=== PATIENT | female | born 1985 | race Caucasian/White ===

== ENCOUNTER → 2018-04-19 | Outpatient (REF) | payer OTHER ==
[2018-04-19 21:25] LABS: APPEARANCE, URINE MANUAL CLOUDY (CLEAR); COLOR, URINE MANUAL BROWN (YELLOW)
[2018-04-19 21:26] LABS: BILIRUBIN, URINE MANUAL NEGATIVE (NEGATIVE); BLOOD URINE MANUAL POSITIVE (NEGATIVE); GLUCOSE, URINE (UA) MANUAL NEGATIVE (NEGATIVE); KETONE, URINE MANUAL NEGATIVE (NEGATIVE); LEUKOCYTE ESTERASE, URINE MAN POSITIVE (NEGATIVE); MICROSCOPIC INDICATED? MAN YES (NO); NITRITE, URINE MANUAL TRACE (NEGATIVE); PROTEIN, URINE MANUAL 3+ mg/dL (NEGATIVE); UROBILINOGEN, URINE MANUAL NORMAL (NORMAL)
[2018-04-19 21:35] LABS: BACTERIA, URINE LARGE AMOUNT; HYALINE CAST, URINE NONE SEEN /lpf (0-1); MICROSCOPIC EXAM PERFORMED; MUCUS, URINE SMALL AMOUNT (NEGATIVE); RBC, URINE TNTC /hpf (0-3); SQUAMOUS EPITHELIAL CELL URINE NONE SEEN /hpf (SMALL AMT); TRANSITIONAL EPI CELLS, URINE SMALL AMOUNT /hpf; WBC, URINE TNTC /hpf (0-3)
== END ==
LOC: M LAB REF 21:11
DX: N39.0 Urinary tract infection, site not specified (principal)
CPT/HCPCS: 81015

== ENCOUNTER → 2019-04-24 | Outpatient (CLI) | payer MEDICAID ==
[~2019-04-24] MED LIST: ADDE25CA PO; AMLO5TAB6 PO; BUPR300T92 PO; QUET1TAB8 PO; SUBO8MIS SL; VIST50CA PO
== END ==
LOC: M OUTALCOH 07:46
PROVIDERS: ATTEND Psychiatry & Neurology Psychiatry
DX: F11.20 Opioid dependence, uncomplicated (principal)

== ENCOUNTER → 2019-05-14 | Outpatient (REF) | payer OTHER ==
[2019-05-14 13:35] LABS: HCG, SERUM QUALITATIVE NEGATIVE (NEGATIVE)
[2019-05-14 13:41] LABS: FREE THYROXINE INDEX 4.2 % (1.3-4.8); T UPTAKE 38 % (30-39); THYROXINE (T4) 11.1 UG/DL (4.5-12.0)
[2019-05-14 13:52] LABS: ESTRADIOL 24.1 PG/ML; FOLLICLE STIMULATING HORMONE 5.3 mIU/mL; PROLACTIN 6.2 NG/ML
[2019-05-16 00:07] LABS: DEHYDROEPIANDROSTERONE SULFATE 154.9 ug/dL (84.8-378.0)
== END ==
LOC: M SFHCWAGY 10:54
PROVIDERS: ATTEND Nurse Practitioner Women's Health
DX: N91.4 Secondary oligomenorrhea (principal)

== ENCOUNTER → 2019-05-20 | Outpatient (RCR) | payer MEDICAID | LOC: M OUTALCOH 05-06 14:48 | PROVIDERS: ATTEND Psychiatry & Neurology Psychiatry | DX: F11.20 Opioid dependence, uncomplicated (principal); Z72.0 Tobacco use ==

== ENCOUNTER 2019-06-18 10:00 | Outpatient (RCR) | payer MEDICAID | END 2019-06-20 | LOC: M OUTALCOH 10:00 | PROVIDERS: ATTEND Psychiatry & Neurology Psychiatry | DX: F11.20 Opioid dependence, uncomplicated (principal); Z72.0 Tobacco use ==

== ENCOUNTER 2019-06-28 13:00 | Outpatient (RCR) | payer MEDICAID | END 2019-07-20 | LOC: M OUTALCOH 13:00 | PROVIDERS: ATTEND Psychiatry & Neurology Psychiatry | DX: F11.20 Opioid dependence, uncomplicated (principal); Z72.0 Tobacco use ==

== ENCOUNTER 2019-09-06 03:04 | Emergency (ER) | payer MEDICAID, OTHER ==
[~2019-09-06] VITALS: Ht 157.5 cm; Wt 52.3 kg
[2019-09-06] MEDS ORDERED: AMLO5TAB6 PO (03:11)
[2019-09-06] MEDS ORDERED: ADDE25CA PO (03:11)
[2019-09-06] MEDS ORDERED: BUPR300T92 PO (03:11)
[2019-09-06] MEDS ORDERED: QUET1TAB8 PO (03:11)
[2019-09-06] MEDS ORDERED: SUBO8MIS SL (03:11)
[2019-09-06] MEDS ORDERED: hydrOXYzine 50 MG TAB PO ONE (04:45)
[2019-09-06 04:52] LABS: HEMATOCRIT 38.8 % (36.0-47.0); MEAN CORPUSCULAR HEMOGLOBIN 28.5 pg (27.0-33.0); MEAN CORPUSCULAR HGB CONC 33.5 g/dl (32.0-36.5); MEAN CORPUSCULAR VOLUME 85.1 fl (80.0-96.0); PLATELET COUNT, AUTOMATED 592 10^3/uL (150-450); RED BLOOD COUNT 4.56 10^6/uL (4.00-5.40); WHITE BLOOD COUNT 11.4 10^3/uL (4.0-10.0)
[2019-09-06 05:02] LABS: INR 1.08; PROTHROMBIN TIME 13.7 SECONDS (11.8-14.0)
[2019-09-06 05:03] LABS: PARTIAL THROMBOPLASTIN TIME 33.2 SECONDS (25.0-38.4)
[2019-09-06 05:08] LABS: EOSINOPHILS 2 % (0-3); LYMPHOCYTES 38 % (16-44); MONOCYTES 8 % (0-5); NEUTROPHILS 52 % (28-66); PLATELET ESTIMATE INCREASED (NORMAL)
--- NOTE | 2019-09-06 05:39 | REPVR ---
PROCEDURE INFORMATION: Exam: US Abdomen Limited, Right Upper Quadrant Exam date and time: 09/06/19 (4:57am) Age: 34 years old Clinical indication: New onset jaundice TECHNIQUE: Imaging protocol: Real-time ultrasound of the abdomen with image documentation. Examination was focused on the right upper quadrant. COMPARISON: No relevant prior studies available FINDINGS: The liver is visually normal in size and texture. The gallbladder wall is top normal in thickness (2.9 mm), with no stones nor sludge seen. No pericholecystic fluid is appreciated. The sonographic Salomon's sign is reported to be (-). The CBD is not dilated (3.3 mm diameter). The pancreas appears grossly unremarkable (limited views). The right kidney measures 11.5 cm in length, with no hydronephrosis appreciated. No ascites is seen. IMPRESSION: No acute pathology. No gallstones nor sludge. No biliary obstruction. Electronically signed by: Karen Orozco On 09/06/2019 05:38:50 AM
[2019-09-06 06:00] VITALS: BP 148/88
[2019-09-06 06:32] LABS: BLOOD UREA NITROGEN 7 MG/DL (7-18); CALCIUM LEVEL 8.7 MG/DL (8.5-10.1); CARBON DIOXIDE LEVEL 25 MEQ/L (21-32); CHLORIDE LEVEL 102 MEQ/L (98-107); CREATININE FOR GFR 0.69 MG/DL (0.55-1.30); GLOMERULAR FILTRATION RATE > 60.0 (>60); GLUCOSE, FASTING 104 MG/DL (70-100); POTASSIUM SERUM 4.2 MEQ/L (3.5-5.1); SODIUM LEVEL 135 MEQ/L (136-145)
[2019-09-06 06:33] LABS: ALBUMIN 3.2 GM/DL (3.2-5.2); ALT/SGPT 501 U/L (12-78); AMYLASE 48 U/L (25-115); BILIRUBIN,DIRECT 10.6 MG/DL (0.0-0.2); BILIRUBIN,TOTAL 12.3 MG/DL (0.2-1.0); ETHYL ALCOHOL (ETHANOL) < 0.003 % (0.000-0.010); LIPASE 195 U/L (73-393); TOTAL PROTEIN 7.9 GM/DL (6.4-8.2)
[2019-09-06] MEDS ORDERED: VIST50CA PO (06:49)
[2019-09-06 10:17] LABS: HEPATITIS B SURFACE ANTIGEN NEGATIVE (NEGATIVE)
[2019-09-06 10:45] LABS: HEPATITIS C VIRUS ABY INDEX < 0.0 INDEX (<0.8)
[2019-09-06 10:46] LABS: HEPATITIS B CORE ANTIBODY IGM NEGATIVE (NEGATIVE)
[2019-09-06 12:05] LABS: HEPATITIS A ANTIBODY IGM POSITIVE (NEGATIVE)
== END 2019-09-06 06:59 | disposition home or self-care (01) ==
LOC: M ED 03:04
DX: K75.9 Inflammatory liver disease, unspecified (principal); F11.21 Opioid dependence, in remission; Z79.899 Other long term (current) drug therapy; Z88.0 Allergy status to penicillin; F17.210 Nicotine dependence, cigarettes, uncomplicated
CPT/HCPCS: 36415; 76705; 80048; 80076; 81001; 82150; 83690; 84702; 85025; 85610; 85730; 86705; 86709; 86803; 87340; 93041; 99284; G0480

== ENCOUNTER → 2020-06-26 | Outpatient (CLI) | payer MEDICAID ==
[~2020-06-26] MED LIST changes: +AMLO1TAB24 PO; -AMLO5TAB6 PO; +QUET100T2 PO; -QUET1TAB8 PO
== END ==
LOC: M OUTALCOH 08:22
PROVIDERS: ATTEND Psychiatry & Neurology Addiction Medicine
DX: F11.20 Opioid dependence, uncomplicated (principal)

== ENCOUNTER → 2020-08-07 | Outpatient (REF) | payer MEDICAID ==
[2020-08-10 15:14] LABS: HEPATITIS A ANTIBODY IGM EQUIVOCAL (NEGATIVE); HEPATITIS B CORE ANTIBODY IGM NEGATIVE (NEGATIVE); HEPATITIS B SURFACE ANTIGEN NEGATIVE (NEGATIVE); HEPATITIS C VIRUS ABY INDEX 0.1 INDEX (<0.8); HIV 1&2 SCREEN CENTAUR NEGATIVE (NEGATIVE)
== END ==
LOC: M LAB REF 21:46
PROVIDERS: ATTEND Physician Assistant Medical
DX: A64 Unspecified sexually transmitted disease (principal)

== ENCOUNTER → 2021-03-26 | Outpatient (CLI) | payer MEDICAID | LOC: M OUTALCOH 07:39 | PROVIDERS: ATTEND Psychiatry & Neurology Psychiatry | DX: Z13.9 Encounter for screening, unspecified (principal) ==

== ENCOUNTER 2021-04-15 10:15 | Outpatient (RCR) | payer MEDICAID | END 2021-04-20 | LOC: M OUTALCOH 10:15 | PROVIDERS: ATTEND Psychiatry & Neurology Psychiatry | DX: F11.20 Opioid dependence, uncomplicated (principal); F15.20 Other stimulant dependence, uncomplicated; F17.200 Nicotine dependence, unspecified, uncomplicated ==

== ENCOUNTER 2021-05-13 09:00 | Outpatient (RCR) | payer MEDICAID | END 2021-05-20 | LOC: M OUTALCOH 09:00 | PROVIDERS: ATTEND Psychiatry & Neurology Psychiatry | DX: F11.20 Opioid dependence, uncomplicated (principal); F15.20 Other stimulant dependence, uncomplicated; F17.200 Nicotine dependence, unspecified, uncomplicated ==

== ENCOUNTER 2021-06-17 08:00 | Outpatient (RCR) | payer MEDICAID | END 2021-06-20 | LOC: M OUTALCOH 08:00 | PROVIDERS: ATTEND Psychiatry & Neurology Psychiatry | DX: F11.20 Opioid dependence, uncomplicated (principal); F15.20 Other stimulant dependence, uncomplicated; F17.200 Nicotine dependence, unspecified, uncomplicated ==

== ENCOUNTER 2021-07-08 08:00 | Outpatient (RCR) | payer MEDICAID | END 2021-07-20 | LOC: M OUTALCOH 08:00 | PROVIDERS: ATTEND Psychiatry & Neurology Psychiatry | DX: F11.20 Opioid dependence, uncomplicated (principal); F15.20 Other stimulant dependence, uncomplicated; F17.200 Nicotine dependence, unspecified, uncomplicated ==

== ENCOUNTER → 2021-09-27 | Outpatient (REF) | payer OTHER ==
[2021-09-28 00:15] LABS: GC DNA AMPLIFICATION NEGATIVE (NEGATIVE)
== END ==
LOC: M LAB REF 20:51
PROVIDERS: ATTEND Physician Assistant Medical
DX: Z20.2 Contact with and (suspected) exposure to infections with a predominantly sexual mode of transmission (principal)

== ENCOUNTER 2021-10-04 10:13 | Emergency (ER) | payer OTHER ==
[~2021-10-04] VITALS: Ht 157.5 cm; Wt 52.3 kg
[2021-10-04] MEDS ORDERED: METR-265 (10:40)
[2021-10-04 12:03] LABS: BASO # 0.1 10^3/uL (0.0-0.2); BASO % 0.3 % (0.0-1.0); HEMATOCRIT 37.6 % (36.0-47.0); HEMOGLOBIN 12.7 g/dl (12.0-15.5); LYMPH # 1.7 10^3/uL (1.5-5.0); LYMPH % 9.4 % (24.0-44.0); MEAN CORPUSCULAR HEMOGLOBIN 28.5 pg (27.0-33.0); MEAN CORPUSCULAR HGB CONC 33.8 g/dl (32.0-36.5); MEAN CORPUSCULAR VOLUME 84.5 fl (80.0-96.0); MONO % 9.4 % (2.0-8.0); NEUTROPHILS # 14.8 10^3/uL (1.5-8.5); NEUTROPHILS % 80.3 % (36.0-66.0); PLATELET COUNT, AUTOMATED 271 10^3/uL (150-450); RED BLOOD COUNT 4.45 10^6/uL (4.00-5.40); WHITE BLOOD COUNT 18.5 10^3/uL (4.0-10.0)
[2021-10-04 12:27] LABS: ERYTHROCYTE SEDIMENTATION RATE 69 mm/hr (0-20)
[2021-10-04 12:30] LABS: MONO # 1.7 10^3/uL (0.0-0.8)
[2021-10-04] MEDS ORDERED: NS 1,000 ML IV ONE (13:00)
[2021-10-04] MEDS ORDERED: VANCOMYCIN HCL 1,000 MG in IV FLUID PLACE HOLDER 1 EA IV ONE (13:35)
[2021-10-04] MEDS ORDERED: VANCOMYCIN HCL 1,000 MG, VIAL MATE ADAPTER 1 EACH in NS 250 ML IV ONE (13:40)
[2021-10-04 15:18] LABS: ALBUMIN 2.5 GM/DL (3.2-5.2); ALT/SGPT 21 U/L (12-78); BILIRUBIN,DIRECT 0.1 MG/DL (0.0-0.2); BILIRUBIN,TOTAL 0.4 MG/DL (0.2-1.0); BLOOD UREA NITROGEN 8 MG/DL (7-18); CALCIUM LEVEL 8.2 MG/DL (8.5-10.1); CARBON DIOXIDE LEVEL 23 MEQ/L (21-32); CHLORIDE LEVEL 100 MEQ/L (98-107); CREATININE FOR GFR 0.55 MG/DL (0.55-1.30); GLOMERULAR FILTRATION RATE > 60.0 (>60); GLUCOSE, FASTING 96 MG/DL (70-100); POTASSIUM SERUM 3.5 MEQ/L (3.5-5.1); SODIUM LEVEL 133 MEQ/L (136-145)
[2021-10-04] MEDS ORDERED: DOXY-443 PO (15:29)
[2021-10-04 15:43] VITALS: BP 121/71
== END 2021-10-04 16:03 | disposition home or self-care (01) ==
LOC: M ED 10:13
DX: L03.114 Cellulitis of left upper limb (principal); I10 Essential (primary) hypertension; F33.9 Major depressive disorder, recurrent, unspecified; Z88.0 Allergy status to penicillin; Z79.899 Other long term (current) drug therapy; Z79.891 Long term (current) use of opiate analgesic
CPT/HCPCS: 36415; 80047; 80048; 80076; 83605; 84702; 85025; 85652; 86140; 87040; 87077; 87186; 96361; 96365; 99283; J3370

== ENCOUNTER → 2022-01-28 | Outpatient (REF) | payer OTHER, SELFPAY ==
[~2022-01-28] MED LIST changes: +DOXY-443 PO; +METR-265
[2022-01-28 12:53] LABS: HEMOGLOBIN 13.9 g/dl (12.0-15.5); MEAN CORPUSCULAR HEMOGLOBIN 29.4 pg (27.0-33.0); MEAN CORPUSCULAR HGB CONC 33.1 g/dl (32.0-36.5); MEAN CORPUSCULAR VOLUME 88.8 fl (80.0-96.0); PLATELET COUNT, AUTOMATED 339 10^3/uL (150-450); RED BLOOD COUNT 4.73 10^6/uL (4.00-5.40); WHITE BLOOD COUNT 8.6 10^3/uL (4.0-10.0)
[2022-01-28 13:58] LABS: ALBUMIN 4.2 GM/DL (3.2-5.2); ALT/SGPT 19 U/L (12-78); BILIRUBIN,TOTAL 0.3 MG/DL (0.2-1.0); BLOOD UREA NITROGEN 14 MG/DL (7-18); CARBON DIOXIDE LEVEL 30 MEQ/L (21-32); CHLORIDE LEVEL 99 MEQ/L (98-107); CREATININE FOR GFR 0.85 MG/DL (0.55-1.30); GLOMERULAR FILTRATION RATE > 60.0 (>60); GLUCOSE, FASTING 61 MG/DL (70-100); POTASSIUM SERUM 4.7 MEQ/L (3.5-5.1); SODIUM LEVEL 136 MEQ/L (136-145); TOTAL PROTEIN 7.8 GM/DL (6.4-8.2)
[2022-01-28 14:04] LABS: HCG, SERUM QUALITATIVE NEGATIVE (NEGATIVE)
[2022-01-28 14:18] LABS: HEPATITIS B SURFACE ANTIGEN NEGATIVE (NEGATIVE)
[2022-01-28 14:46] LABS: HEPATITIS C VIRUS ABY INDEX 0.1 INDEX (<0.8)
[2022-01-28 14:47] LABS: HIV 1&2 SCREEN CENTAUR NEGATIVE (NEGATIVE)
[2022-01-28 14:55] LABS: GC DNA AMPLIFICATION NEGATIVE (NEGATIVE)
== END ==
LOC: M LAB REF 12:30
PROVIDERS: ATTEND Family Medicine
DX: F11.21 Opioid dependence, in remission (principal)

== ENCOUNTER 2022-10-31 14:24 | Emergency (ER) | payer OTHER, SELFPAY ==
[~2022-10-31] VITALS: Ht 157.5 cm; Wt 58.0 kg
[2022-10-31 14:24] VITALS: BP 123/78
[2022-10-31] MEDS ORDERED: QUET200T2 (14:42)
[2022-10-31] MEDS ORDERED: ARIP1TAB10 (14:42)
== END 2022-10-31 15:36 | disposition home or self-care (01) ==
LOC: M ED 14:24
DX: J02.9 Acute pharyngitis, unspecified (principal); Z88.0 Allergy status to penicillin; Z88.1 Allergy status to other antibiotic agents; Z79.899 Other long term (current) drug therapy

== ENCOUNTER → 2023-05-31 | Outpatient (REF) | payer OTHER ==
[~2023-05-31] MED LIST changes: +ARIP1TAB10; +QUET200T2
[2023-05-31 17:20] LABS: BASO # 0.1 10^3/uL (0.0-0.2); BASO % 1.3 % (0.0-1.0); EOS # 0.1 10^3/uL (0.0-0.5); EOS % 1.7 % (0.0-3.0); HEMATOCRIT 40.5 % (36.0-47.0); HEMOGLOBIN 13.3 g/dl (12.0-15.5); LYMPH # 3.1 10^3/uL (1.5-5.0); LYMPH % 39.7 % (24.0-44.0); MEAN CORPUSCULAR HEMOGLOBIN 29.2 pg (27.0-33.0); MEAN CORPUSCULAR HGB CONC 32.8 g/dl (32.0-36.5); MEAN CORPUSCULAR VOLUME 88.8 fl (80.0-96.0); MONO # 0.8 10^3/uL (0.0-0.8); MONO % 10.4 % (2.0-8.0); NEUTROPHILS # 3.7 10^3/uL (1.5-8.5); NEUTROPHILS % 46.6 % (36.0-66.0); PLATELET COUNT, AUTOMATED 390 10^3/uL (150-450); RED BLOOD COUNT 4.56 10^6/uL (4.00-5.40); WHITE BLOOD COUNT 7.8 10^3/uL (4.0-10.0)
[2023-05-31 17:47] LABS: ALBUMIN 4.2 G/DL (3.2-5.2); ALKALINE PHOSPHATASE 48 U/L (46-116); ALT/SGPT 13 U/L (7.0-40); AST/SGOT 11 U/L (<34); BILIRUBIN,TOTAL 0.3 MG/DL (0.3-1.2); BLOOD UREA NITROGEN 13 MG/DL (9-23); CALCIUM LEVEL 9.5 MG/DL (8.5-10.1); CARBON DIOXIDE LEVEL 30 MMOL/L (20-31); CHLORIDE LEVEL 101 MMOL/L (98-107); CHOLESTEROL LEVEL 168 MG/DL (<200); CHOLESTEROL RISK RATIO 2.85 (<5); CREATININE FOR GFR 0.77 MG/DL (0.55-1.30); GLOMERULAR FILTRATION RATE > 60.0 (>60); GLUCOSE, FASTING 76 MG/DL (60-100); HDL CHOLESTEROL 58.8 MG/DL (>40); LDL CHOLESTEROL 89.2 MG/DL (<100); NON-HDL-C 109.2 MG/DL; POTASSIUM SERUM 4.7 MMOL/L (3.5-5.1); SODIUM LEVEL 136 MMOL/L (136-145); THYROID STIMULATING HORMONE 2.373 uIU/ML (0.55-4.78); TOTAL 25(OH) VITAMIN D 44.3 NG/ML (20.0-100.0); TOTAL PROTEIN 7.4 G/DL (5.7-8.2); TRIGLYCERIDES LEVEL 100 MG/DL (<150)
== END ==
LOC: M LAB REF 16:30
PROVIDERS: ATTEND Nurse Practitioner Family
DX: E55.9 Vitamin D deficiency, unspecified (principal); R25.1 Tremor, unspecified; F19.11 Other psychoactive substance abuse, in remission; Z11.9 Encounter for screening for infectious and parasitic diseases, unspecified; Z68.21 Body mass index [BMI] 21.0-21.9, adult

== ENCOUNTER 2023-09-27 11:55 | Emergency (ER) | payer MEDICAID, OTHER ==
[~2023-09-27] VITALS: Ht 157.5 cm; Wt 49.8 kg
[2023-09-27] MEDS ORDERED: BUPR1FIL37 SL (12:08)
[2023-09-27] MEDS ORDERED: QUET1TAB17 PO (12:08)
[2023-09-27] MEDS ORDERED: QUET100T2 PO (12:08)
[2023-09-27] MEDS ORDERED: CETI-24 PO (12:08)
[2023-09-27] MEDS ORDERED: LUMA42CA PO (12:08)
[2023-09-27 13:40] LABS: HEMATOCRIT 37.7 % (36.0-47.0); MEAN CORPUSCULAR HEMOGLOBIN 29.8 pg (27.0-33.0); MEAN CORPUSCULAR HGB CONC 34.5 g/dl (32.0-36.5); MEAN CORPUSCULAR VOLUME 86.5 fl (80.0-96.0); PLATELET COUNT, AUTOMATED 328 10^3/uL (150-450); RED BLOOD COUNT 4.36 10^6/uL (4.00-5.40); WHITE BLOOD COUNT 10.2 10^3/uL (4.0-10.0)
[2023-09-27 14:10] LABS: ETHYL ALCOHOL (ETHANOL) < 0.003 % (0.000-0.010)
[2023-09-27 14:11] LABS: SALICYLATE LEVEL < 3.0 MG/DL (<30)
[2023-09-27 14:12] LABS: ALBUMIN 3.9 G/DL (3.2-5.2); ALKALINE PHOSPHATASE 58 U/L (46-116); ALT/SGPT 14 U/L (7.0-40); AST/SGOT 13 U/L (<34); BILIRUBIN,DIRECT < 0.1 MG/DL (<0.4); BILIRUBIN,TOTAL 0.3 MG/DL (0.3-1.2); BLOOD UREA NITROGEN 13 MG/DL (9-23); CARBON DIOXIDE LEVEL 28 MMOL/L (20-31); CHLORIDE LEVEL 105 MMOL/L (98-107); CREATININE FOR GFR 0.55 MG/DL (0.55-1.30); GLOMERULAR FILTRATION RATE > 60.0 (>60); GLUCOSE, FASTING 117 MG/DL (60-100); POTASSIUM SERUM 4.2 MMOL/L (3.5-5.1); SODIUM LEVEL 139 MMOL/L (136-145); TOTAL PROTEIN 6.8 G/DL (5.7-8.2)
[2023-09-27 14:15] LABS: THYROID STIMULATING HORMONE 2.462 uIU/ML (0.55-4.78)
[2023-09-27 17:19] LABS: BARBITURATES URINE NEGATIVE (NEGATIVE); BENZODIAZEPINES URINE NEGATIVE (NEGATIVE); COCAINE METABOLITE URINE NEGATIVE (NEGATIVE); METHADONE URINE NEGATIVE (NEGATIVE); OPIATES URINE NEGATIVE (NEGATIVE); PHENCYCLIDINE URINE NEGATIVE (NEGATIVE)
[2023-09-27 17:22] LABS: AMPHETAMINES LEVEL URINE POSITIVE (NEGATIVE); CANNABINOIDS URINE POSITIVE (NEGATIVE)
[2023-09-27] MEDS ORDERED: ACETAMINOPHEN TAB 650MG DOSE (2X325MG) PO PRN (17:50)
[2023-09-27] MEDS ORDERED: diphenhydrAMINE 25MG CAP PO PRN (17:50)
[2023-09-27] MEDS ORDERED: MAALOX 30 ML SUSP *UDC PO PRN (17:50)
[2023-09-27] MEDS ORDERED: MOM 30ML SUSPENSION UDC PO PRN (17:50)
[2023-09-27] MEDS ORDERED: traZODone 50 MG TAB PO PRN (17:50)
[2023-09-27] MEDS ORDERED: IBUPROFEN 400MG TAB PO PRN (17:50)
[2023-09-27] MEDS ORDERED: AMPH1CAP5 PO (18:53)
[2023-09-27] MEDS ORDERED: HOME MED LIST COMPLETE! XX SCH (18:55)
[2023-09-27] MEDS ORDERED: QUEtiapine FUMARATE 25 MG TAB PO PRN (19:20)
[2023-09-27] MEDS: QUEtiapine FUMARATE 100 MG TAB PO SCH (21:11)
[2023-09-27 22:06] VITALS: BP 145/90; TEMP 98.4; O2SAT 98
[2023-09-28] MEDS ORDERED: QUEtiapine FUMARATE 25 MG TAB PO SCH (09:00)
== END 2023-09-27 23:02 | disposition home or self-care (01) ==
LOC: M ED 11:55 → M ED INP 17:46 → UNDOADMIN 17:46
DX: F41.0 Panic disorder [episodic paroxysmal anxiety] (principal); F32.A Depression, unspecified; F90.9 Attention-deficit hyperactivity disorder, unspecified type; Z88.0 Allergy status to penicillin

== ENCOUNTER → 2023-11-08 | Outpatient (REF) | payer MEDICAID, OTHER ==
[~2023-11-08] MED LIST changes: +AMPH1CAP5 PO; +BUPR1FIL37 SL; +CETI-24 PO; +LUMA42CA PO; +QUET1TAB17 PO
[2023-11-08 17:25] LABS: MAGNESIUM LEVEL 1.7 MG/DL (1.8-2.4)
[2023-11-08 17:29] LABS: FOLATE > 24.0 NG/ML (>5.4)
[2023-11-08 17:30] LABS: VITAMIN B12 LEVEL 515 PG/ML (211-911)
== END ==
LOC: M LAB REF 16:07
PROVIDERS: ATTEND Nurse Practitioner Family
DX: R51.9 Headache, unspecified (principal)

== ENCOUNTER → 2024-01-08 | Outpatient (REF) | payer MEDICAID, OTHER ==
[~2024-01-08] MED LIST changes: +BUPR-597 PO; -BUPR300T92 PO; +DOXY-323 PO; -DOXY-443 PO
[2024-01-08 17:43] LABS: APPEARANCE, URINE CLOUDY (CLEAR); BACTERIA, URINE AUTO 1+ (NEGATIVE); BILIRUBIN, URINE AUTO NEGATIVE (NEGATIVE); BLOOD, URINE BLOOD NEGATIVE (NEGATIVE); COLOR, URINE AMBER (YELLOW); GLUCOSE, URINE (UA) AUTO NEGATIVE (NEGATIVE); KETONE, URINE AUTO NEGATIVE (NEGATIVE); LEUKOCYTE ESTERASE, URINE AUTO 3+ (NEGATIVE); MUCUS, URINE SMALL (NEGATIVE); NITRITE, URINE AUTO POSITIVE (NEGATIVE); PROTEIN, URINE AUTO NEGATIVE (NEGATIVE); RBC, URINE AUTO 6 /HPF (0-3); SPECIFIC GRAVITY URINE AUTO 1.016 (1.002-1.035); SQUAMOUS EPITHELIAL CELL UR AU 0 /HPF (0-6); UROBILINOGEN, URINE AUTO 0.2 mg/dL (0.0-2.0); WBC, URINE AUTO 16 /HPF (0-3)
== END ==
LOC: M LAB REF 16:24
PROVIDERS: ATTEND Physician Assistant Medical
DX: N39.0 Urinary tract infection, site not specified (principal)

== ENCOUNTER → 2024-07-23 | Outpatient (REF) | payer MEDICAID, OTHER ==
[~2024-07-23] MED LIST changes: -DOXY-323 PO; +DOXY-441 PO
[2024-07-24 13:58] LABS: BASO # 0.1 10^3/uL (0.0-0.2); BASO % 1.5 % (0.0-1.0); EOS # 0.1 10^3/uL (0.0-0.5); EOS % 1.1 % (0.0-3.0); HEMATOCRIT 42.2 % (36.0-47.0); HEMOGLOBIN 13.4 g/dl (12.0-15.5); LYMPH # 3.4 10^3/uL (1.5-5.0); LYMPH % 46.2 % (24.0-44.0); MEAN CORPUSCULAR HEMOGLOBIN 29.7 pg (27.0-33.0); MEAN CORPUSCULAR HGB CONC 31.8 g/dl (32.0-36.5); MEAN CORPUSCULAR VOLUME 93.6 fl (80.0-96.0); MONO # 0.6 10^3/uL (0.0-0.8); MONO % 8.1 % (2.0-8.0); NEUTROPHILS # 3.1 10^3/uL (1.5-8.5); NEUTROPHILS % 42.8 % (36.0-66.0); PLATELET COUNT, AUTOMATED 413 10^3/uL (150-450); RED BLOOD COUNT 4.51 10^6/uL (4.00-5.40); WHITE BLOOD COUNT 7.3 10^3/uL (4.0-10.0)
[2024-07-24 14:28] LABS: HEMOGLOBIN A1c 4.9 % (4.0-6.0)
[2024-07-24 14:30] LABS: THYROID STIMULATING HORMONE 1.427 uIU/ML (0.55-4.78)
[2024-07-24 14:34] LABS: TOTAL IRON BINDING CAPACITY 297 UG/DL (250-425)
[2024-07-24 14:35] LABS: ALBUMIN 4.3 G/DL (3.2-5.2); ALKALINE PHOSPHATASE 49 U/L (35-104); ALT/SGPT 14 U/L (7.0-40); AST/SGOT 9 U/L (<34); BILIRUBIN,TOTAL 0.4 MG/DL (0.3-1.2); BLOOD UREA NITROGEN 15 MG/DL (9-23); CALCIUM LEVEL 10.1 MG/DL (8.5-10.1); CARBON DIOXIDE LEVEL 28 MMOL/L (20-31); CHLORIDE LEVEL 103 MMOL/L (98-107); CHOLESTEROL LEVEL 220 MG/DL (<200); CHOLESTEROL RISK RATIO 3.59 (<5); CREATININE FOR GFR 0.71 MG/DL (0.55-1.30); GLOMERULAR FILTRATION RATE > 60.0 (>60); GLUCOSE, FASTING 88 MG/DL (60-100); HDL CHOLESTEROL 61.2 MG/DL (>40); IRON (FE) 110 UG/DL (50-170); LDL CHOLESTEROL 134.8 MG/DL (<100); MAGNESIUM LEVEL 1.9 MG/DL (1.8-2.4); NON-HDL-C 158.8 MG/DL; POTASSIUM SERUM 5.4 MMOL/L (3.5-5.1); SODIUM LEVEL 140 MMOL/L (136-145); TOTAL PROTEIN 7.5 G/DL (5.7-8.2); TRIGLYCERIDES LEVEL 120 MG/DL (<150)
== END ==
LOC: M LAB REF 12:58
PROVIDERS: ATTEND Nurse Practitioner Family
DX: R20.2 Paresthesia of skin (principal); Z13.6 Encounter for screening for cardiovascular disorders